=== PATIENT | female | born 1940 | race Caucasian/White ===

== ENCOUNTER 2018-07-19 20:07 | Inpatient (IN) | payer MEDICARE ==
[~2018-07-19 20:07] MED LIST: ISOVUE-370 76%-LOCM 1 ML ONE
[2018-07-19 20:51] LABS: #Basophils 0.1 thou/uL (0.0-0.2); #Lymphocytes 0.7 thou/uL (1.20-3.40); #Monocytes 0.8 thou/uL (0.11-0.59); #Neutrophils 10.6 thou/uL (1.40-6.50); %Basophils 0.7 % (0.0-1.0); %Eosinophils 0.1 % (0.0-10.0); %Lymphocytes 5.6 % (21.0-51.0); %Monocytes 6.6 % (0.0-10.0); %Neutrophils 86.9 % (42.0-75.0); Hemoglobin 12.6 g/dL (12.0-16.0); Mean Corpuscular HGB CONC 32.7 g/dL (32.0-36.0); Mean Platelet Volume 7.3 fL (7.4-10.4); Platelet Count 329 thou/uL (130-400); RBC Distribution Width 13.3 % (11.5-14.5); Red Blood Cell (RBC) Count 4.05 mill/uL (4.20-5.40); White Blood Cell (WBC) Count 12.2 thou/uL (4.8-10.8)
[2018-07-19] MEDS ORDERED: methylPREDNISolone Sod Succ/PF 125 MG/2 ML VIAL ONE (20:53)
[2018-07-19] MEDS ORDERED: Water For Inject, Bacteriostat 30 ML ONE (20:54)
[2018-07-19 21:13] LABS: ALT (SGPT) 8 U/L (8-55); AST (SGOT) 11 U/L (5-34); Albumin 3.7 g/dL (3.4-4.8); Alkaline Phosphatase 81 U/L (40-150); Anion Gap 18 mmol/L (10-20); BUN (Urea Nitrogen) 14 mg/dL (9.8-20.1); Bilirubin, Total 0.6 mg/dL (0.2-1.2); Calc. Creatinine Clearance 0 mL/min (70-130); Calcium 9.7 mg/dL (7.8-10.44); Carbon Dioxide 19 mmol/L (23-31); Chloride 103 mmol/L (98-107); Estimated GFR-MDRD 84; Globulin 3.3 g/dL (2.4-3.5); Glucose 150 mg/dL (83-110); Lipase 5 U/L (8-78); Potassium 3.4 mmol/L (3.5-5.1); Sodium 137 mmol/L (136-145)
[2018-07-19 21:17] LABS: CKMB 1.9 ng/mL (0-6.6); Troponin I Less than 0.010 ng/mL (< 0.028)
--- NOTE | 2018-07-19 21:26 | RAD ---
CHEST ONE VIEW: 07/19/18 HISTORY: Dyspnea and shortness of breath. COMPARISON: None. FINDINGS: There is atherosclerosis of the aorta. Normal cardiac silhouette. The pulmonary vessels and hilum are normal. Costophrenic angles are slightly blunted, right greater than left. Chronic changes due to at electasis is suspected. There are patchy interstitial opacities in the lung bases also felt to be due to atelectasis. The lungs are hyperinflated. There is no pneumothorax or osseous abnormalities. Note , there is a skin fold projecting over the right hemithorax. IMPRESSION: 1. Hyperinflation. Chronic changes. 2. Atherosclerosis. POS: [facility]
[2018-07-19 21:32] LABS: Free T4 (Free Thyroxine) 1.31 ng/dL (0.70-1.48); Thyroid Stimulating Hormone 0.1688 uIU/mL (0.35-4.94)
--- NOTE | 2018-07-19 22:42 | CT ---
CT ANGIOGRAM OF THE CHEST 07/19/18 HISTORY: Evaluate for pulmonary artery embolism. Cough and shortness of breath. COMPARISON: None. TECHNIQUE: CT angiogram of the chest is performed in the axial plane. Three dimension reformatted images are sub mitted for interpretation. FINDINGS: No mediastinal mass, lymphadenopathy, or hematoma. There is a small amount of pericardial fluid. Hear t size is within normal limits. There are coronary artery calcifications. There is atherosclerosis an d elongation of the thoracic aorta. No evidence of aneurysm or dissection. There is a hypodensity pos terior to the bifurcation of the central pulmonary arterial system. This hypodensity has an attenuati on coefficients of negative 10 (-10) Hounsfield units and may present pericardial fluid. Visualized upper solid organs are unremarkable. There is prominence of the common bile duct. Emphysematous changes in the lung parenchyma. There is consolidation in the right lower lobe, right i nfrahilar region and in the middle lobe. There is evidence of right hilar lymphadenopathy. A conglome ration of enlarged right hilar lymph node measures 2.3 x 1.2 cm. There appears to be soft tissue material in the right main stem bronchus extending into the proximal bronchi involving the right lower lobe and middle lobe. Adequate contrast opacification in the pulmonary arterial system to the level of the segmental arteri es. No filling defect to suggest thromboembolism. IMPRESSION: 1. Right hilar consolidation/soft tissue attenuation within the right main stem bronchus and bro nchi supplying the middle lobe and lower lobe. Bronchoscopy is recommended to exclude a malignant pro cess. there is consolidation in the right lower lobe and middle lobe which may represent pneumonia. 2. Enlarged right hilar lymph nodes. 3. Prominent common bile duct, incompletely evaluated. 4. Extensive emphysematous changes. POS: [facility]
[2018-07-19 23:08] LABS: Bilirubin Negative (Negative); Blood, Urine Negative (Negative); Clarity CLEAR (Clear); Glucose, Urine (Dipstick) Negative (Negative); Leukocyte Negative (Negative); Nitrite Negative (Negative); Protein, Urine (Dipstick) Negative (Neg-Trace)
[2018-07-19 23:11] LABS: Specific Gravity, Urine 1.058 (1.002-1.036)
--- NOTE | 2018-07-20 00:33 | PDOC.FPRHP ---
- History of Present Illness Chief Complaint: SOB History of Present Illness: This is a 77 yo F w/ PMH significant for COPD presenting with hx of dyspnea for worsening over the last day. The patient endorses SOB that suddenly became worse around 1900. Patient states that she has also had a cough that has progressively gotten worse over the last 2 weeks and has become productive. Patient is unable to characterize the color, but states it is a small amount. Patient also endorses nausea today but no vomiting. Patient has hx of persistent UTI for which she is taking doxy and macrobid. She is currently seeing a specialist for this issue. Patient states she has hesitancy issues. Patient endorses feeling febrile at home over the last day. Per daughter who was in the room, she states patient looked diaphoretic over the past day as well. Patient notes a 20lb weight loss over the last 2 months. She states hse has had a decreased appetite. Patient has a significant smoking hx. Patient denies chest pain, palpitations, abdominal pain, vomiting, diarrhea. 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 denies: night sweats, fatigue Eyes: denies: eye pain, vision changes ENT: denies: nasal congestion, rhinorrhea Respiratory: reports: cough, shortness of breath. denies: congestion Cardiovascular: denies: chest pain, palpitation, edema Gastrointestinal: reports: nausea. denies: vomiting, diarrhea, constipation, abdominal pain Genitourinary: reports: incontinence. denies: dysuria Skin: denies: rashes, lesions Musculoskeletal: reports: other (generalized pain) - Vital signs BP: 116/57 HR: 112 RR: 22 Tmax: 100.6 Pox: 94% on RA initially 86% on RA with EMS Wt: 49.9kg - Physical Exam Constitutional: NAD, awake, alert and oriented -Constitutional: elderly appearing, cachectic appearing HEENT: normocephalic and atraumatic, PERRLA, EOMI, grossly normal vision, grossly normal hearing, MMM Neck: supple, FROM, trachea midline Chest: no-tender to palpation, no lesions Heart: RRR, normal S1/S2, no murmurs/rubs/gallops, pulses present, no edema Lungs: no respiratory distress -Lungs: RLL crackles, clear in other lung iraheta Abdomen: soft, non-tender, bowel sounds present, no masses/distention Musculoskeletal: normal structure, normal tone, ROM grossly normal Neurological: no focal deficit Skin: no rash/lesions, good turgor, capillary refill <2 seconds Psychiatric: normal mood and affect, good judgment and insight, intact recent and remote memory FMR H&P: Results - Labs Result Diagrams: 07/20/18 03:37 07/20/18 03:37 Lab results: WBC 12.2 thou/uL (4.8-10.8) H 07/19/18 20:43 Hgb 12.6 g/dL (12.0-16.0) 07/19/18 20:43 Hct 38.5 % (36.0-47.0) 07/19/18 20:43 MCV 95.0 fL (78.0-98.0) 07/19/18 20:43 Plt Count 329 thou/uL (130-400) 07/19/18 20:43 Neutrophils % 86.9 % (42.0-75.0) H 07/19/18 20:43 Sodium 137 mmol/L (136-145) 07/19/18 20:43 Potassium 3.4 mmol/L (3.5-5.1) L 07/19/18 20:43 Chloride 103 mmol/L (98-107) 07/19/18 20:43 Carbon Dioxide 19 mmol/L (23-31) L 07/19/18 20:43 BUN 14 mg/dL (9.8-20.1) 07/19/18 20:43 Creatinine 0.68 mg/dL (0.6-1.1) 07/19/18 20:43 Glucose 150 mg/dL (83-110) H 07/19/18 20:43 Calcium 9.7 mg/dL (7.8-10.44) 07/19/18 20:43 Total Bilirubin 0.6 mg/dL (0.2-1.2) 07/19/18 20:43 AST 11 U/L (5-34) 07/19/18 20:43 ALT 8 U/L (8-55) 07/19/18 20:43 Alkaline Phosphatase 81 U/L (40-150) 07/19/18 20:43 CK-MB (CK-2) 1.9 ng/mL (0-6.6) 07/19/18 20:43 B-Natriuretic Peptide 233.7 pg/mL (0-100) H 07/19/18 20:43 Serum Total Protein 7.0 g/dL (6.0-8.3) 07/19/18 20:43 Albumin 3.7 g/dL (3.4-4.8) 07/19/18 20:43 Lipase 5 U/L (8-78) L 07/19/18 20:43 Urine Ketones 40 mg/dL (Negative) H 07/19/18 22:55 Urine Blood Negative (Negative) 07/19/18 22:55 Urine Nitrite Negative (Negative) 07/19/18 22:55 Ur Leukocyte Esterase Negative (Negative) 07/19/18 22:55 - Radiology Interpretation Other Status: report reviewed by me (IMPRESSION: 1. Right hilar consolidation/soft tissue attenuation within the right main stem bronchus and bro nchi supplying the middle lobe and lower lobe. Bronchoscopy is recommended to exclude a malignant pro cess. there is consolidation in the right lower lobe and middle lobe which may represent pneumonia. 2. Enlarged right hilar lymph nodes. 3. Prominent common bile duct, incompletely evaluated. 4. Extensive emphysematous changes.) FMR H&P: A/P - Problem List (1) Sepsis Current Visit: No Status: Acute Code(s): A41.9 - SEPSIS, UNSPECIFIED ORGANISM (2) Hypokalemia Current Visit: No Status: Acute Code(s): E87.6 - HYPOKALEMIA (3) Leukocytosis Current Visit: No Status: Acute Code(s): D72.829 - ELEVATED WHITE BLOOD CELL COUNT, UNSPECIFIED (4) Acute respiratory failure with hypoxia Current Visit: No Status: Acute Code(s): J96.01 - ACUTE RESPIRATORY FAILURE WITH HYPOXIA (5) COPD (chronic obstructive pulmonary disease) Current Visit: No Status: Acute (6) Hypertension Current Visit: No Status: Acute Code(s): I10 - ESSENTIAL (PRIMARY) HYPERTENSION (7) UTI (urinary tract infection) Current Visit: Yes Status: Acute (8) Lung mass Current Visit: Yes Status: Acute Code(s): R91.8 - OTHER NONSPECIFIC ABNORMAL FINDING OF LUNG FIELD - Plan Sepsis 2/2 to CAP vs post obstructive pneumonia - Admit to medical inpatient - Pt febrile, tachycardic and hypoxic on arrival to ED - CTA showing right hilar consolidation/soft tissue attenuation within right main stem bronchus and consolidation in RLL and middle lobe representing possible pneumonia - recommend bronchoscopy - D-dimer elevated; PE ruled out w/ CTA - Pulm consult placed - continue IV levoquin Lung mass, new finding - CTA: right hilar consolidation/soft tissue of right main stem bronchus - recommended bronchoscopy - concern for possible malignant neoplasm - Pulm consulted Acute hypoxic Resp Failure, resolved - 86% per EMS - continue to monitor O2 sat, keep 88-92% - Duoneb PRN COPD Exacerbation - Duoneb tx PRN - CXR showing hyperinflation and chronic changes - continue home meds - PRN supplemental O2 - Will give daily steroids Subclinical hyperthyroidism - Asymptomatic, continue to monitor. Leukocytosis - 2/2 to post obstructive pneumonia Hypokalemia - K 3.4 - Will trend with AM BMP and replace as needed Recurrent UTIs - Continue home antibiotic regimen. - Pt follows up with urologist outpatient Hx of Hip/Pelvic Fracture - Aware, fall precautions Hx of Hypertension - Aware, continue home meds Hx of Restless leg syndrome - continue home medications. DISPO: admit to tele for sepsis CODE: DNR FMR H&P: Upper Level - Pertinent history Caitlyn Kerr is a 77 year old female with a 40 pack year smoking history and history of COPD who presents to the ED with a one day history of shortness of breath that acutely worsened yesterday @ 1900 without provocation. Pt also noted increased productive cough yesterday. She was noted to have an oxygen saturation of 86% at some point on room air. Dyspnea improved with duonebs treatments given by EMS. Of note, pt reports ~ 20 lb weight loss over the past several months. - Pertinent findings Vitals: Tmax: 100.6 RR: 19 P: 112 SpO2: 99% on RA Physical Exam: General: alert and oriented in no distress; cachectic appearing. Heart: regular rate and rhythm, no murmurs, rubs, or gallops Lungs: RLL crackles; no wheezes or rhonchi; no use of accessory muscles. Extremities: no peripheral edema Labs and Imaging reviewed and as stated above. - Plan Date/Time: 07/20/1831 I, Valarie Mejia, have evaluated this patient and agree with findings/plan as outlined by hospital internship resident. Pertinent changes/additions are listed here. Sepsis secondary to postobstructive pneumonia - with fever and tachycardia, and presence of infectious process on CTA. - Pt has received 20 ml/kg bolus. - continue Levofloxacin; Consider adding Zosyn given presence of structural abnormality and increased risk of pseudomonas; will hold off for now. - Procalcitonin pending COPD exacerbation - with dyspnea, and increase in sputum production - Continue steroids, duonebs - prn supplemental O2 Lung Mass, new diagnosis - pt with longstanding smoking history - concern raised for possible neoplasm. - Pulm consult placed in ED, recommendations appreciated Subclinical hyperthyroidism - asymptomatic, continue to monitor. Hypokalemia - will replace. Restless leg syndrome - continue home medications. Recurrent UTIs - continue home antibiotic regimen. - pt follows up with urologist outpatient. Acute hypoxic respiratory failure, resolved Attending Addendum - Attending Addendum Date/Time: 07/20/18 [id number] I personally evaluated the patient and discussed the management with Dr. Lr/ Jackie. I agree with the History, Examination, Assessment and Plan documented above with any addition or exceptions noted below.
[2018-07-20] MEDS ORDERED: Ondansetron PF 4 MG/2 ML Vial IVP PRN (00:48)
[2018-07-20] MEDS ORDERED: Acetaminophen 325 MG TAB PO PRN (00:48)
[2018-07-20 02:04] VITALS: BMI 17.0
[2018-07-20] MEDS ORDERED: clonazePAM 0.5 MG TAB PO SCH (02:30)
[2018-07-20 03:09] LABS: Lactic Acid 1.5 mmol/L (0.5-2.2)
[2018-07-20 03:24] LABS: Legionella Urinary Ag Negative (Negative); Strep pneumo Urine Ag NEGATIVE (NEGATIVE)
[2018-07-20 05:13] LABS: #Lymphocytes 0.3 thou/uL (1.20-3.40); #Monocytes 0.1 thou/uL (0.11-0.59); #Neutrophils 10.3 thou/uL (1.40-6.50); %Lymphocytes 2.5 % (21.0-51.0); %Monocytes 1.3 % (0.0-10.0); %Neutrophils 96.1 % (42.0-75.0); Hemoglobin 11.1 g/dL (12.0-16.0); Mean Corpuscular HGB CONC 33.2 g/dL (32.0-36.0); Mean Corpuscular Hemoglobin 31.1 pg (27.0-31.0); Mean Corpuscular Volume 93.6 fL (78.0-98.0); Mean Platelet Volume 7.9 fL (7.4-10.4); Platelet Count 301 thou/uL (130-400); RBC Distribution Width 13.3 % (11.5-14.5); Red Blood Cell (RBC) Count 3.57 mill/uL (4.20-5.40); White Blood Cell (WBC) Count 10.8 thou/uL (4.8-10.8)
[2018-07-20 05:33] LABS: Anion Gap 14 mmol/L (10-20); BUN (Urea Nitrogen) 9 mg/dL (9.8-20.1); Calc. Creatinine Clearance 59 mL/min (70-130); Calcium 9.1 mg/dL (7.8-10.44); Carbon Dioxide 20 mmol/L (23-31); Chloride 106 mmol/L (98-107); Estimated GFR-MDRD Greater than 90; Glucose 176 mg/dL (83-110); Potassium 3.5 mmol/L (3.5-5.1); Sodium 136 mmol/L (136-145)
[2018-07-20] MEDS ORDERED: Prevnar 13-Val Conj/PF 0.5 ML SYRINGE IM ONE (09:00)
[2018-07-20] MEDS ORDERED: methylPREDNISolone Sod Succ/PF 125 MG/2 ML VIAL IVP SCH (09:00)
[2018-07-20] MEDS: Enoxaparin Sodium 40 MG/0.4 ML SYRINGE SC SCH (09:46)
[2018-07-20] MEDS: predniSONE 20 MG TAB PO SCH (09:46)
[2018-07-20] MEDS: Nicotine 21 MG PATCH TD SCH (09:48)
[2018-07-20] MEDS ORDERED: Labetalol HCl 100 MG/20 ML VIAL SLOW IVP PRN (11:45)
[2018-07-20] MEDS ORDERED: guaiFENesin ER 600 MG TAB PO SCH (15:45)
[2018-07-20] MEDS: clonazePAM 0.5 MG TAB PO PRN (20:18)
[2018-07-20] MEDS ORDERED: Nebivolol HCl 5 MG TAB PO SCH (21:45)
[2018-07-20] MEDS ORDERED: Mometasone/Formoterol 120 PUFF INHALER INH SCH (21:45)
[2018-07-20] MEDS: Doxycycline 100 MG CAP PO SCH (21:48)
[2018-07-21] MEDS ORDERED: hydrOXYzine 10 MG TAB PO SCH (01:10)
[2018-07-21] MEDS: Thyroid 30 MG TAB PO SCH (05:47)
--- NOTE | 2018-07-21 06:27 | PDOC.FM ---
- Subjective Subjective: Able to eat, but dec. appetite. No respiratory complaints. SOB & chest tightness has improved; duonebs have helped. - Objective MAR Reviewed: Yes Vital Signs & Weight: Vital Signs (12 hours) Temp Pulse Resp BP Pulse Ox 07/21/18 05:00 97.9 F 76 18 172/85 H 92 L 07/21/18 00:00 97.3 F L 76 18 186/99 H 92 L 07/20/18 21:55 81 18 94 L 07/20/18 21:45 175/88 H 07/20/18 20:00 98.0 F 83 20 190/110 H 92 L Weight Weight 44.991 kg I&O: 07/19/18 07/20/18 07/21/18 06:59 06:59 06:59 Intake Total 600 Balance 600 Result Diagrams: 07/21/18 07:05 07/21/18 07:05 Phys Exam - Physical Examination Constitutional: NAD HEENT: moist MMs, sclera anicteric Respiratory: no wheezing, no rales, clear to auscultation bilateral Cardiovascular: RRR, no significant murmur Gastrointestinal: soft, non-tender, no distention Neurological: non-focal, moves all 4 limbs Psychiatric: normal affect, A&O x 3 Dx/Plan (1) COPD exacerbation Code(s): J44.1 - CHRONIC OBSTRUCTIVE PULMONARY DISEASE W (ACUTE) EXACERBATION Status: Acute (2) Hypokalemia Code(s): E87.6 - HYPOKALEMIA Status: Acute (3) Mass of lung parenchyma Code(s): R91.8 - OTHER NONSPECIFIC ABNORMAL FINDING OF LUNG FIELD Status: Acute (4) Subclinical hyperthyroidism Code(s): E05.90 - THYROTOXICOSIS, UNSP WITHOUT THYROTOXIC CRISIS OR STORM Status: Acute (5) Restless legs syndrome Status: Acute (6) Recurrent UTI Code(s): N39.0 - URINARY TRACT INFECTION, SITE NOT SPECIFIED Status: Acute (7) Sepsis Code(s): A41.9 - SEPSIS, UNSPECIFIED ORGANISM Status: Resolved (8) Acute respiratory failure with hypoxia Code(s): J96.01 - ACUTE RESPIRATORY FAILURE WITH HYPOXIA Status: Resolved - Plan Plan: 77 yo F with longstanding COPD & smoking hx with COPD exacerbation, sepsis secondary to PNA. Sepsis 2/2 RLL PNA -Clinically stable, vital signs stable, afebrile -Will transition from IV to PO levaquin -Pending blood cultures Acute on chronic COPD exacerbation in setting of PNA -Continue prednisone, duonebs PRN, levaquin -supplemental O2 PRN for goal O2 of 88-92% New pulmonary R hilar consolidation, concern for neoplasm -Pulm consult placed in ED, will touch base today, recs appreciated Hypokalemia -3.4 -> 3.1, will replace and recheck in AM HTN -uncontrolled on home bystolic, will add on amlodipine -Continue to monitor Hypercalcemia -10.9, asx, continue to monitor -Encouraged po hydration intake Subclinical hyperthyroidism -stable, asx, continue home dose of armour thyroid & monitoring RLS -continue home meds Recurrent UTIs -continue home doxy -follows with urologist Tobacco abuse -nicotine patch Acute hypoxic respiratory failure -92% on RA, appropriate given hx of COPD DVT ppx: Lovenox Discussed with Dr. Man
[2018-07-21] MEDS: Mometasone/Formoterol 120 PUFF INHALER INH SCH ×2 (06:37→19:08)
[2018-07-21 07:15] LABS: #Monocytes 0.7 thou/uL (0.11-0.59); %Basophils 0.1 % (0.0-1.0); %Eosinophils 0.1 % (0.0-10.0); %Lymphocytes 8.2 % (21.0-51.0); %Monocytes 5.9 % (0.0-10.0); %Neutrophils 85.7 % (42.0-75.0); Hemoglobin 13.3 g/dL (12.0-16.0); Mean Corpuscular HGB CONC 31.7 g/dL (32.0-36.0); Mean Corpuscular Hemoglobin 29.9 pg (27.0-31.0); Mean Corpuscular Volume 94.3 fL (78.0-98.0); Mean Platelet Volume 7.3 fL (7.4-10.4); Platelet Count 425 thou/uL (130-400); RBC Distribution Width 13.2 % (11.5-14.5); Red Blood Cell (RBC) Count 4.45 mill/uL (4.20-5.40); White Blood Cell (WBC) Count 11.7 thou/uL (4.8-10.8)
[2018-07-21 07:48] LABS: ALT (SGPT) 14 U/L (8-55); AST (SGOT) 22 U/L (5-34); Alkaline Phosphatase 86 U/L (40-150); Anion Gap 13 mmol/L (10-20); BUN (Urea Nitrogen) 9 mg/dL (9.8-20.1); Bilirubin, Total 0.4 mg/dL (0.2-1.2); Calc. Creatinine Clearance 52 mL/min (70-130); Calcium 10.5 mg/dL (7.8-10.44); Carbon Dioxide 27 mmol/L (23-31); Chloride 105 mmol/L (98-107); Estimated GFR-MDRD 86; Globulin 3.7 g/dL (2.4-3.5); Glucose 103 mg/dL (83-110); Potassium 3.1 mmol/L (3.5-5.1); Protein, Total 7.7 g/dL (6.0-8.3); Sodium 142 mmol/L (136-145)
[2018-07-21] MEDS: Doxycycline 100 MG CAP PO SCH ×2 (08:48→22:03)
[2018-07-21] MEDS: Enoxaparin Sodium 40 MG/0.4 ML SYRINGE SC SCH (08:48)
[2018-07-21] MEDS: guaiFENesin ER 600 MG TAB PO SCH ×2 (08:49→22:03)
[2018-07-21] MEDS: predniSONE 20 MG TAB PO SCH (08:49)
[2018-07-21] MEDS: Nicotine 21 MG PATCH TD SCH (08:51)
[2018-07-21] MEDS ORDERED: Potassium Chloride 20 MEQ TAB PO SCH (09:00)
--- NOTE | 2018-07-21 12:23 | PRG ---
DATE OF SERVICE: 07/21/2018 Ms. Kerr is a 77-year-old white female, heavy smoker, who was admitted with pneumonia type symptoms along with exacerbation of COPD. She has been found to have a lung mass and we are awaiting input f rom the Pulmonary Service. Clinically, this morning she is stable, in no acute distress. LABORATORY DATA: Her white count is 11.7, hemoglobin is 13.3, hematocrit is 42. Chemistries; her so dium was 142, potassium is slightly low at 3.1 and we are correcting this, chloride 105, bicarbonate 27, BUN is 9, creatinine 0.67.
[2018-07-21] MEDS ORDERED: Amlodipine 5 MG TAB PO SCH (12:30)
[2018-07-21] MEDS: Ondansetron ODT 4 MG TAB PO PRN (12:47)
[2018-07-21] MEDS: Nebivolol HCl 5 MG TAB PO SCH (22:03)
[2018-07-21] MEDS: clonazePAM 0.5 MG TAB PO PRN (22:10)
--- NOTE | 2018-07-21 22:13 | CON ---
DATE OF CONSULTATION: 07/21/2018 70 minutes time, of that time, greater than 50% was spent with the patient and/or the patient's unit in the hospital. REASON FOR CONSULTATION: Potential endobronchial lung mass. HISTORY OF PRESENT ILLNESS: Ms. Kerr is a 77-year-old female who was just relocated to this area f [facility]. She developed symptoms of pneumonia on Saturday and was subsequently admitted to the [facility]. She tells me she has lost approximately 25 pounds of weight in the last 2 months. She has had some night sweats. She has had no hemoptysis. She has a 1 pack per day history of smoking for 3 0 years, but quit about 8 years ago. She has no previous history of cancer. She is currently being treated with antibiotics for the pneumonia. PAST MEDICAL HISTORY: COPD on inhalers at home, hypertension, restless legs syndrome. PAST SURGICAL HISTORY: Hip fixation 8 years ago, pelvic fixation 4 years ago. FAMILY MEDICAL HISTORY: Remarkable for hypertension. SOCIAL HISTORY: Smoking as outlined above. Drinks 1 beer per day. Lives with her daughter who is o pening up a cake store in [facility]. REVIEW OF SYSTEMS: Twelve point review of systems otherwise negative except for the weight loss and night sweats. PHYSICAL EXAMINATION: VITAL SIGNS: Temperature 97.8, pulse 78, respirations 19, O2 sat 90% on room air, blood pressure 150 /91. GENERAL: The patient is 5 foot 4 and is 99 pounds. HEENT: Remarkable for some mild bitemporal wasting. NECK: No adenopathy, no JVD, but she has extensive muscle loss. LUNGS: She has some rhonchi in the right lower lobe, best heard anteriorly. Left side is clear. CARDIOVASCULAR: S1, S2 regular. ABDOMEN: Soft, nontender, no hepatosplenomegaly. EXTREMITIES: No clubbing, cyanosis, or edema. LABORATORY DATA: White blood cell count 11.7, hematocrit 42, platelet count 425. D-dimer was 1.63. Chemistry: Sodium 142, potassium 3.1, chloride 105, CO2 27, BUN 9, creatinine 0.6, glucose 103. Ur inalysis shows some ketonuria. CT of the chest was reviewed. She has some right hilar lymphadenopathy. She has some infiltrative c hanges in the right lower lobe distally. She has some thickening of the fissure between the right mi ddle lobe and the right lower lobe in looking at her bronchial anatomy. She has narrowing of the reg ion leading to the right middle lobe and the right lower lobe with possible endobronchial material, a lthough that is difficult to tell. ASSESSMENT: 1. Right lower lobe pneumonia, possibly postobstructive. 2. Potential endobronchial lung lesion. PLAN: Bronchoscopy with biopsy. Plan is to do the procedure on Saturday. I discussed the risk with the patient including bleeding, infection, accidental lung puncture, and possible reaction to sedation. She is agreeable to proceed. In the meantime, continue antibiotics. Doxycycline and L evaquin have a lot of overlap so I would probably choose one or the other, but not both.
[2018-07-22 05:06] LABS: #Lymphocytes 1.3 thou/uL (1.20-3.40); #Monocytes 0.6 thou/uL (0.11-0.59); #Neutrophils 7.1 thou/uL (1.40-6.50); %Basophils 0.4 % (0.0-1.0); %Eosinophils 0.2 % (0.0-10.0); %Lymphocytes 14.4 % (21.0-51.0); Hemoglobin 14.1 g/dL (12.0-16.0); Mean Corpuscular HGB CONC 32.6 g/dL (32.0-36.0); Mean Corpuscular Hemoglobin 30.8 pg (27.0-31.0); Mean Corpuscular Volume 94.5 fL (78.0-98.0); Mean Platelet Volume 7.8 fL (7.4-10.4); Platelet Count 445 thou/uL (130-400); RBC Distribution Width 13.5 % (11.5-14.5); Red Blood Cell (RBC) Count 4.56 mill/uL (4.20-5.40); White Blood Cell (WBC) Count 9.1 thou/uL (4.8-10.8)
[2018-07-22 05:26] LABS: ALT (SGPT) 27 U/L (8-55); AST (SGOT) 32 U/L (5-34); Albumin 3.9 g/dL (3.4-4.8); Alkaline Phosphatase 86 U/L (40-150); Anion Gap 17 mmol/L (10-20); BUN (Urea Nitrogen) 12 mg/dL (9.8-20.1); Bilirubin, Total 0.4 mg/dL (0.2-1.2); Calc. Creatinine Clearance 49 mL/min (70-130); Calcium 10.4 mg/dL (7.8-10.44); Carbon Dioxide 23 mmol/L (23-31); Chloride 104 mmol/L (98-107); Estimated GFR-MDRD 82; Globulin 3.6 g/dL (2.4-3.5); Glucose 85 mg/dL (83-110); Potassium 3.5 mmol/L (3.5-5.1); Protein, Total 7.5 g/dL (6.0-8.3); Sodium 140 mmol/L (136-145)
[2018-07-22] MEDS: Thyroid 30 MG TAB PO SCH (05:41)
--- NOTE | 2018-07-22 07:03 | PDOC.FM ---
- Subjective Subjective: No acute events overnight. Denies SOB, wheezing, chest tightness, productive cough. Denies fevers. Feels better today. - Objective Vital Signs & Weight: Vital Signs (12 hours) Temp Pulse Resp BP Pulse Ox 07/22/18 01:43 95 07/21/18 20:50 97.9 F 81 20 161/97 H 91 L 07/21/18 20:00 91 L 07/21/18 19:08 61 16 95 Weight Admit Weight 44.991 kg Weight 44.991 kg I&O: 07/20/18 07/21/18 07/22/18 06:59 06:59 06:59 Intake Total 600 620 Balance 600 620 Result Diagrams: 07/22/18 03:56 07/22/18 03:56 Phys Exam - Physical Examination Constitutional: NAD HEENT: moist MMs, sclera anicteric Neck: supple, full ROM Respiratory: no wheezing dec breath sounds diffusely, rhonci in RLL Cardiovascular: RRR, no significant murmur Neurological: non-focal, moves all 4 limbs Psychiatric: normal affect, A&O x 3 Dx/Plan (1) COPD exacerbation Code(s): J44.1 - CHRONIC OBSTRUCTIVE PULMONARY DISEASE W (ACUTE) EXACERBATION Status: Acute (2) Mass of lung parenchyma Code(s): R91.8 - OTHER NONSPECIFIC ABNORMAL FINDING OF LUNG FIELD Status: Acute (3) Subclinical hyperthyroidism Code(s): E05.90 - THYROTOXICOSIS, UNSP WITHOUT THYROTOXIC CRISIS OR STORM Status: Acute (4) Restless legs syndrome Status: Acute (5) Recurrent UTI Code(s): N39.0 - URINARY TRACT INFECTION, SITE NOT SPECIFIED Status: Acute (6) Sepsis Code(s): A41.9 - SEPSIS, UNSPECIFIED ORGANISM Status: Resolved (7) Acute respiratory failure with hypoxia Code(s): J96.01 - ACUTE RESPIRATORY FAILURE WITH HYPOXIA Status: Resolved (8) Hypokalemia Code(s): E87.6 - HYPOKALEMIA Status: Resolved - Plan Plan: 77 yo F with longstanding COPD & smoking hx with COPD exacerbation, sepsis secondary to PNA. Sepsis 2/2 RLL PNA -Clinically stable, vital signs stable, afebrile -Non-hypoxic on RA -Will transition to po levaquin today, d/c doxycycline -Pending blood cultures, NG2D Acute on chronic COPD exacerbation in setting of PNA -Continue prednisone, duonebs PRN, levaquin -supplemental O2 PRN for goal O2 of 88-92% -currently non-hypoxic on RA Potential endobronchial lung lesion -Dr. Romero plans for bronchoscopy Saturday (07/23) HTN -fairly controlled with amlodipine 5mg -if today's BPs not around goal given age, will inc amlodipine dose Hypercalcemia, RESOLVED -10.4, continue to monitor with daily CMPs Hypokalemia,RESOLVED Subclinical hyperthyroidism -stable, asx, continue home dose of armour thyroid & monitoring RLS -continue home meds Recurrent UTIs -continue home doxy -follows with urologist Tobacco abuse -nicotine patch Acute hypoxic respiratory failure -92% on RA, appropriate given hx of COPD DVT ppx: Lovenox Dispo: Stable. Bronch tmrw. Can most likely d/c pending Pulm's recs. Discussed with Dr. Man
[2018-07-22] MEDS: Mometasone/Formoterol 120 PUFF INHALER INH SCH ×2 (07:37→18:29)
[2018-07-22] MEDS ORDERED: Clopidogrel Bisulfate 75 MG TAB ONE (07:57)
[2018-07-22] MEDS: predniSONE 20 MG TAB PO SCH (08:47)
[2018-07-22] MEDS: guaiFENesin ER 600 MG TAB PO SCH ×2 (08:48→19:58)
[2018-07-22] MEDS: Amlodipine 5 MG TAB PO SCH (08:48)
[2018-07-22] MEDS: Nicotine 21 MG PATCH TD SCH (08:48)
[2018-07-22] MEDS: Enoxaparin Sodium 40 MG/0.4 ML SYRINGE SC SCH (08:48)
[2018-07-22] MEDS ORDERED: Amlodipine 5 MG TAB PO SCH ×2 (09:00)
--- NOTE | 2018-07-22 09:03 | PRG ---
DATE OF SERVICE: 07/22/2018 The patient is about the same. She had no acute complaints. PHYSICAL EXAMINATION: VITAL SIGNS: Temperature 97.9, pulse 68, respiration 20, O2 sat 90% on 1 liter, blood pressure 129/6 8. HEENT: Unremarkable. NECK: No JVD. LUNGS: Coarse breath sounds in the right, clear on the left. CARDIAC: S1 and S2 regular. ABDOMEN: Soft. EXTREMITIES: No edema. LABORATORY DATA: White blood cell count 9.1, hematocrit 43.1, platelet count 445. Sodium 140, potas sium 3.5, BUN 12, creatinine 0.7, calcium level 10.4. ASSESSMENT: 1. Possible endobronchial lung mass. 2. Postobstructive pneumonia. PLAN: Bronchoscopy with biopsy. See informed consent discussion from yesterday. Procedure is scheduled for 729.
--- NOTE | 2018-07-22 12:22 | ADD-PRG ---
DATE OF SERVICE: 07/22/2018 ADDENDUM Please add this as an addendum to the note of Sheron Byrne MD. Ms. Kerr has been seen by Dr. Romero. Dr. Romero will perform bronchoscopy tomorrow with further treatment to follow on this procedure. This morning, Ms. Kerr is sitting quietly in bed in no dis tress. She has no chest pain, no shortness of breath and the greatly diminished cough.
[2018-07-22] MEDS: Ondansetron ODT 4 MG TAB PO PRN (14:10)
[2018-07-22] MEDS: traMADol HCl 50 MG TAB PO PRN (17:08)
[2018-07-22] MEDS: Nebivolol HCl 5 MG TAB PO SCH (19:57)
[2018-07-22] MEDS: clonazePAM 0.5 MG TAB PO PRN (21:48)
[2018-07-23] MEDS: Thyroid 30 MG TAB PO SCH (05:01)
--- NOTE | 2018-07-23 05:59 | PDOC.FM ---
- Subjective Subjective: NAEO. Pt. reports feeling well, no complaints. Denies SOB, wheezing, fevers. - Objective MAR Reviewed: Yes Vital Signs & Weight: Vital Signs (12 hours) Temp Pulse Resp BP Pulse Ox 07/23/18 04:00 98.0 F 63 20 125/80 93 L 07/22/18 20:00 92 L 07/22/18 19:18 98.4 F 86 20 149/95 H 92 L 07/22/18 18:29 61 16 90 L Weight Admit Weight 44.991 kg Weight 44.991 kg I&O: 07/21/18 07/22/18 07/23/18 06:59 06:59 06:59 Intake Total 600 620 Balance 600 620 Result Diagrams: 07/22/18 03:56 07/22/18 03:56 Phys Exam - Physical Examination Constitutional: NAD HEENT: PERRLA, moist MMs, sclera anicteric Respiratory: no wheezing, no rales, clear to auscultation bilateral dec breath sounds in RLL Musculoskeletal: no edema Neurological: non-focal, moves all 4 limbs Psychiatric: normal affect, A&O x 3 Dx/Plan (1) COPD exacerbation Code(s): J44.1 - CHRONIC OBSTRUCTIVE PULMONARY DISEASE W (ACUTE) EXACERBATION Status: Acute (2) Mass of lung parenchyma Code(s): R91.8 - OTHER NONSPECIFIC ABNORMAL FINDING OF LUNG FIELD Status: Acute (3) Subclinical hyperthyroidism Code(s): E05.90 - THYROTOXICOSIS, UNSP WITHOUT THYROTOXIC CRISIS OR STORM Status: Acute (4) Restless legs syndrome Status: Acute (5) Recurrent UTI Code(s): N39.0 - URINARY TRACT INFECTION, SITE NOT SPECIFIED Status: Acute (6) Sepsis Code(s): A41.9 - SEPSIS, UNSPECIFIED ORGANISM Status: Resolved (7) Acute respiratory failure with hypoxia Code(s): J96.01 - ACUTE RESPIRATORY FAILURE WITH HYPOXIA Status: Resolved (8) Hypokalemia Code(s): E87.6 - HYPOKALEMIA Status: Resolved - Plan Plan: 77 yo F with longstanding COPD & smoking hx with COPD exacerbation, sepsis secondary to PNA. Sepsis 2/2 RLL PNA -Sepsis resolved, RLL present -Respiratory standpoint-clinically stable -Continue po levaquin -Pending finalized blood cultures, NG2D Acute on chronic COPD exacerbation in setting of PNA -Continue prednisone, duonebs PRN, levaquin -supplemental O2 PRN for goal O2 of 88-92% -currently non-hypoxic on RA Potential endobronchial lung lesion -s/p bronchoscopy, pending path results HTN -stable, continue amlodipine Hypercalcemia, RESOLVED -10.4, continue to monitor with daily CMPs Hypokalemia,RESOLVED Subclinical hyperthyroidism -stable, asx, continue home dose of armour thyroid & monitoring RLS -continue home meds Recurrent UTIs -covered with levaquin -follows with urologist Tobacco abuse -nicotine patch Acute hypoxic respiratory failure -92% on RA, appropriate given hx of COPD DVT ppx: Lovenox Dispo: Stable. Bronch today at 0730. Medically stable from primary team point of view. D/c pending pulm's recs s/p bronch. Discussed with Dr. Man
[2018-07-23] MEDS ORDERED: Sodium Chloride 0.9% 1,000 ML IV SCH (06:00)
[2018-07-23] MEDS: Mometasone/Formoterol 120 PUFF INHALER INH SCH (07:03)
[2018-07-23] MEDS ORDERED: Lidocaine 2% PF 5 ML VIAL ONE (07:06)
[2018-07-23] MEDS ORDERED: Fentanyl 100 MCG/2 ML VIAL ONE (07:36)
[2018-07-23] MEDS ORDERED: Promethazine HCl 25 MG/ML VIAL IM PRN (08:23)
[2018-07-23] MEDS ORDERED: Ondansetron HCl/PF 4 MG/2 ML Vial IVP PRN (08:23)
[2018-07-23] MEDS ORDERED: Promethazine HCl 25 MG/ML VIAL SLOW IVP PRN (08:23)
[2018-07-23] MEDS: Amlodipine 5 MG TAB PO SCH (09:38)
[2018-07-23] MEDS: predniSONE 20 MG TAB PO SCH (09:39)
[2018-07-23] MEDS: Nicotine 21 MG PATCH TD SCH (09:39)
[2018-07-23] MEDS: guaiFENesin ER 600 MG TAB PO SCH (09:39)
[2018-07-23] MEDS: Enoxaparin Sodium 40 MG/0.4 ML SYRINGE SC SCH (09:39)
[2018-07-23 11:11] VITALS: BP 102/68; TEMP 97.9
[2018-07-23] MEDS ORDERED: Succinylcholine Chloride 20 MG/ML 10 ml SYRINGE FS ONE (11:11)
[2018-07-23] MEDS ORDERED: PROPOFOL 200 MG/20 ML VIAL ONE (11:11)
[2018-07-23] MEDS ORDERED: Ondansetron PF 4 MG/2 ML Vial ONE (11:11)
[2018-07-23] MEDS ORDERED: Dexamethasone 20 MG/5 ML VIAL ONE (11:11)
[2018-07-23] MEDS ORDERED: PHENYLEPHRINE-NS 100 MCG/ML 10 ML SYRINGE ONE (11:11)
[2018-07-23] MEDS: traMADol HCl 50 MG TAB PO PRN (11:37)
--- NOTE | 2018-07-23 12:43 | OP ---
DATE OF PROCEDURE: 07/23/2018 PROCEDURES PERFORMED: Fiberoptic bronchoscopy with right middle lobe/right lower lobe endobronchial biopsy, endobronchial brushings, and washings. PREOPERATIVE DIAGNOSIS: Endobronchial lung mass. POSTOPERATIVE DIAGNOSES: 1. Bronchitis, right middle lobe/right lower lobe. 2. Mucus plug, right middle lobe/right lower lobe. ANESTHESIA: General endotracheal. DESCRIPTION OF PROCEDURE: The patient was brought to the endoscopic suite. Prior to the procedure, she had signed her informed consent. She was intubated with the size 8.5 endotracheal tube by the Anesthesia Team. She was placed on mechanical ventilation. An adapter was placed in her endotracheal tube. An Olympus bronchoscope was placed in her endotracheal tube. The distal trachea was in normal appearance. The left mainstem bronchus, left upper lobe, and left lower lobe were in normal appearance. The right upper lobe was in normal appearance. The right middle lobe had some erythema and mucoid secretions present. I did not see any evidence of endobronchial lesions, although there was some circumferential swelling in the bronchus intermedius area. The right lower lobe was carefully inspected and I did not see any evidence of endobronchial lesions. I did some brushings in the right middle lobe. Washings were taken from the right middle lobe. Endobronchial biopsies were done at the bronchus intermedius, where some swelling was present in the mucosa. She tolerated the procedure well and was sent to the recovery area in stable condition. Job ID: [id number]
--- NOTE | 2018-07-24 08:57 | PRG ---
DATE OF SERVICE: 07/23/2018 ADDENDUM: To the note of Dr. Sheron Byrne. Ms. Kerr has just returned from bronchoscopy with Dr. Romero. We had not had a chance yet to speak with Dr. Romero, but according to the patient she tolerated the procedure well. She states that Dr. Romero states that the mass seen during bronchoscopy was likely not malignant and he suggested further workup. We did discuss with the patient the need for colonoscopy and likely a CT of the abdomen and pelvis to continue workup to determine the cause of her weight loss. This can likely be arranged as an outpatient we will discuss with Dr. Romero, she can likely be discharged later today. Job ID: [id number]
--- NOTE | 2018-07-24 12:04 | DIS ---
DATE OF ADMISSION: 07/19/2018 DATE OF DISCHARGE: 07/23/2018 RESIDENT: Sheron Byrne MD, PGY-1. ADMITTING ATTENDING: Joshua Bowser MD DISCHARGE ATTENDING: Helder Man MD CONSULT: Pulmonology, Dr. Romero. PROCEDURES: Bronchoscopy, 07/23/2018: -Bronchial washing cytology: negative for malignant cells -Bronchial brushings: negative for malignant cells -Right middle lobe bx: negative for malignant or inflammatory cells -AFB smear negative, culture pending IMAGIN. CT angiogram of the chest: Right hilar consolidation/soft tissue attenuation within the right mainstem bronchus and bronchi supplying the middle lobe and lower lobe. May represent pneumonia, but need to exclude all malignant process. 2. Enlarged right hilar lymph nodes. 3. Prominent common bile duct, incompletely evaluated. 4. Extensive emphysematous changes. PRIMARY DIAGNOSES: 1. Acute hypoxic respiratory failure secondary to right lower lobe pneumonia, likely postobstructive. 2. Right hilar lung consolidation, benign 3. Acute on chronic obstructive pulmonary disease exacerbation. SECONDARY DIAGNOSES: 1. Chronic obstructive pulmonary disease. 2. Restless legs syndrome. 3. Hypertension. 4. Tobacco abuse. DISCHARGE MEDICATIONS: 1. Amlodipine 5 mg p.o. daily. 2. Mucinex 600 mg p.o. q.12 hours p.r.n. for cough and congestion. 3. Levaquin 750 mg daily for 6 days. 4. Nicotine patch 21 mg transdermal daily. 5. Prednisone 10 mg p.o. 1 tablet. DISCONTINUED MEDICATIONS: Doxycycline. HISTORY OF PRESENT ILLNESS AND HOSPITAL COURSE: Ms. Kerr is a pleasant 77-year-old female with history of COPD, who was admitted for acute hypoxic respiratory failure requiring nasal cannula O2. Chest x-ray showed right lower lobe pneumonia, possibly obstructive. In addition clinical picture was complicated by hx of COPD, thus she was also treated for acute COPD exacerbation likely triggered by underlying pneumonia. Patient did not exhibit any systemic infections-remained afrebrile with normal white count during stay. Chest and thorax CTA also showed a right hilar consolidation. Due to recent 20lb weight loss & 30 pack year history, she was further worked up with bronchoscopy which was negative for malignancy . Patient was treated appropriately for PNA and CPOD and clinically improved. She also experienced high blood pressures, which was controlled with startiner her on amlodipine 5 mg. DISPOSITION: Stable. DISCHARGE INSTRUCTIONS: 1. Location, home. 2. Diet, heart-healthy diet. 3. Activity, ad stormy. 4. Followup, please follow up with PCP, Sheron Byrne, at [facility]; Dr. Romero for further conversation for bronchoscopy results if needed. Job ID: [id number] MTDD
--- NOTE | 2018-07-26 16:14 | EKG ---
Test Reason : SOB Blood Pressure : / mmHG Vent. Rate : 109 BPM Atrial Rate : 109 BPM P-R Int : 154 ms QRS Dur : 086 ms QT Int : 338 ms P-R-T Axes : 050 044 084 degrees QTc Int : 455 ms Sinus tachycardia with Premature supraventricular complexes Left ventricular hypertrophy with repolarization abnormality Abnormal ECG Confirmed by LAST RAMIREZ ([id number]), scientific publications editor OLEG KATZ ([id number]) on 07/26/2018 4:14:39 PM Referred By: Confirmed By:LAST RAMIREZ
[2018-07-26 22:07] LABS: Fungus Stain Final report (.)
== END 2018-07-23 13:58 | disposition home or self-care (01) | DRG 871 ==
LOC: ERS 20:07 → 2SW 23:49 → OBSVTOIN 23:49 → ERS 07-20 00:30 → T4-A 07-20 01:37
PROVIDERS: ADMIT Student in an Organized Health Care Education/Training Program; ATTEND Student in an Organized Health Care Education/Training Program
PROC: 0BD68ZX Extraction of Right Lower Lobe Bronchus, Via Natural or Artificial Opening Endoscopic, Diagnostic (ICD-10-PCS; principal; 2018-07-23)
PROC: 0BDD8ZX Extraction of Right Middle Lung Lobe, Via Natural or Artificial Opening Endoscopic, Diagnostic (ICD-10-PCS; 2018-07-23)
DX: A41.9 Sepsis, unspecified organism (principal); J18.8 Other pneumonia, unspecified organism; J96.01 Acute respiratory failure with hypoxia; J44.1 Chronic obstructive pulmonary disease with (acute) exacerbation; J44.0 Chronic obstructive pulmonary disease with (acute) lower respiratory infection; T17.590A Other foreign object in bronchus causing asphyxiation, initial encounter; N39.0 Urinary tract infection, site not specified; G25.81 Restless legs syndrome; I10 Essential (primary) hypertension; F17.210 Nicotine dependence, cigarettes, uncomplicated; R91.8 Other nonspecific abnormal finding of lung field; E87.6 Hypokalemia; E05.90 Thyrotoxicosis, unspecified without thyrotoxic crisis or storm
CPT/HCPCS: 36415; 36416; 71045; 71275; 76000; 80048; 80053; 81003; 82553; 83605; 83690; 83880; 84145; 84439; 84443; 84484; 85025; 85379; 87040; 87070; 87086; 87102; 87116; 87205; 87206; 87804; 87899; 88104; 88112; 88305; 90471; 90670; 93005; 94799; A4353; G0009; J1100; J1650; J1956; J2001; J2405; J2704; J2930; J3010; J7506; Q0162

== ENCOUNTER 2018-08-05 12:06 | Outpatient (CLI) | payer MEDICARE ==
--- NOTE | 2018-08-05 14:36 | CT ---
CT ABDOMEN AND PELVIS WITH IV CONTRAST: Date: 08/05/18 HISTORY: Abnormal weight loss. COMPARISON: CTA thorax on 07/19/18. FINDINGS: The parenchymal area of consolidation in the right lower lobe and right middle lobe, where imaged on today's examination, demonstrates resolution of the parenchymal densities with linear scarring versus atelectasis at the right lung base. There is a small, approximately 6.0 mm, noncalcified pulmonary n odule at the posterolateral aspect of the right lower lobe. This could also be related to a focal are a of atelectasis, but follow-up is suggested. Left lung base is clear. Vascular calcifications are seen in the abdominal aorta and involving the iliac arteries with associa alexandra scattered atherosclerotic plaque. A few tiny, subcentimeter, too small to characterize, hypodense lesions are seen in each lobe of the liver. The previously seen 6.0 mm nonobstructing superior pole right renal calculus is again present. Subcen timeter hypodense cystic lesions are seen in the left kidney, too small to further characterize. The spleen, pancreas, and bilateral adrenal glands demonstrate a normal CT appearance. The common abena t is at the upper limits of normal in size for the patient's age. There is also prominence of the davis creatic duct, which measures 6.0 mm at the level of the pancreatic head. Exact etiology for prominenc e of the pancreatic duct is uncertain. There are punctate calcifications seen in the head and portion s of the body of the pancreas which may be sequelae of prior pancreatitis. There is a large duodenal diverticulum filled with fluid and gas seen at the region of the second and third portion of the duod enum. Urinary bladder demonstrates a normal CT appearance. There is colonic diverticulosis. Small to moderate amount of retained fecal material is seen througho ut the colon. There does appear to be mild focal bowel wall thickening involving a few loops of proxi mal jejunum of uncertain etiology. Enteritis cannot be entirely excluded. No enlarged lymph nodes are seen by CT size criteria. No free fluid or fluid collection seen in the a bdomen or pelvis. Degenerative changes are present in the spine. Postsurgical changes right hip are noted. Remote fract ures involving the right superior and inferior pubic rami are present. IMPRESSION: 1. Resolution of parenchymal densities at the right lung base on prior CT exam on 07/19/18. 2. Small nodular density seen at the right posterolateral costophrenic angle with a few adjacent ramon ear densities. While this does demonstrate nodularity in this region, this may be attributable to res idual mild pleural and parenchymal scarring. 3. Subcentimeter, too small to characterize, hypodense lesions in the liver. 4. Nonobstructing superior pole right renal calculus. 5. Subcentimeter, too small to characterize, hypodense lesions in the left kidney. 6. The extrahepatic common duct is at the upper limits of normal in size with mild dilatation of the pancreatic duct of uncertain etiology. ERCP may be helpful for further evaluation. 7. Prominent duodenal diverticulum. 8. Colonic diverticulosis with evidence of constipation. 9. Multilevel degenerative changes in the spine. 10. Remote fractures right pelvis. POS: [facility]
[2018-08-05] MEDS ORDERED: Iopamidol 370 76% 100 ML VIAL ONE (16:56)
== END 2018-08-05 12:07 | disposition home or self-care (01) ==
LOC: CT 12:06
PROVIDERS: ATTEND Student in an Organized Health Care Education/Training Program
DX: R63.4 Abnormal weight loss (principal); K59.00 Constipation, unspecified; K57.50 Diverticulosis of both small and large intestine without perforation or abscess without bleeding; N20.0 Calculus of kidney; J98.4 Other disorders of lung; K76.9 Liver disease, unspecified; N28.9 Disorder of kidney and ureter, unspecified; M47.9 Spondylosis, unspecified; S32.9XXA Fracture of unspecified parts of lumbosacral spine and pelvis, initial encounter for closed fracture
CPT/HCPCS: 74177

== ENCOUNTER 2018-09-08 13:01 | Outpatient (CLI) | payer MEDICARE ==
--- NOTE | 2018-09-08 14:27 | RAD ---
TWO VIEW CHEST: INDICATION: Dyspnea. FINDINGS: There is hyperinflation of the lungs which are lucent. The cardiac silhouette is mildly enlarged. T here is vascular calcification and prominence of pulmonary vasculature. Increased AP diameter of the chest is seen. There is osseous demineralization. IMPRESSION: Evidence of chronic obstructive pulmonary disease. POS: [facility]
== END 2018-09-08 13:02 | disposition home or self-care (01) ==
LOC: RAD 13:01
PROVIDERS: ATTEND Internal Medicine Critical Care Medicine
DX: R06.00 Dyspnea, unspecified (principal); J44.9 Chronic obstructive pulmonary disease, unspecified
CPT/HCPCS: 71046

== ENCOUNTER 2018-10-08 08:57 | Day surgery (SDC) | payer MEDICARE ==
[2018-10-07 15:18] VITALS: BMI 16.2
--- NOTE | 2018-10-08 12:01 | OP ---
DATE OF PROCEDURE: 10/08/2018 CLOSED CIRCUIT SCREEN WATCHER SURGEON: None. PROCEDURES: 1. Esophagogastroduodenoscopy with biopsies. 2. Colonoscopy with snare polypectomy. INDICATIONS: 1. Chronic nausea. 2. Unintentional weight loss. 3. Dysphagia. 4. Family history of colon cancer in a first-degree relative (father). The patient's last colonoscopy was 10 years ago. MEDICATIONS: See Anesthesia record. FINDINGS: After discussion of the risks, benefits, and alternatives of the procedure, informed consent was obtained and witnessed. Pre-endoscopic cardiopulmonary examination was satisfactory. Time-out was performed before sedation was achieved. Sedation was achieved with Anesthesia assistance in the endoscopy unit. A Pentax adult upper endoscope was placed into the oropharynx and passed through the cricopharyngeus under direct visualization. The proximal and mid esophageal mucosa appeared normal. In the distal esophagus at the GE junction, there was some mild friability indicating reflux esophagitis. There was no evidence of erosion or ulceration there. There was no evidence of any stricture or mass lesion throughout the esophagus. The endoscope passes easily into the stomach. Forward and retroflexed views of the entire gastric mucosa were obtained. The gastric mucosa appeared normal throughout. The endoscope was passed through the pylorus and into the first and second portions of the duodenum, which also appeared normal. I did obtain biopsies from the duodenum to rule out celiac disease. The upper endoscope was completely withdrawn and the patient was repositioned. Digital rectal exam was performed, which was unremarkable. The Pentax adult colonoscope was inserted into the anus and passed forward to the cecum in the usual fashion. The cecal base was identified by the appendiceal orifice as well as the ileocecal valve. The terminal ileum was not intubated. The colonoscope was then slowly withdrawn in a gradual and circumferential manner with careful examination of the entire colonic mucosa. The quality of the prep was good. In the ascending colon, there was a sessile polyp measuring 4 mm in diameter. This was completely removed with hot snare and retrieved for pathology. The remainder of the colonic mucosa appeared normal. There was heavy diverticulosis and tortuosity in the sigmoid colon and initial advancement of the scope beyond this area was difficult but ultimately successful. Retroflexion in the rectum demonstrated internal hemorrhoids. The colonoscope was then completely withdrawn, and the patient allowed to recover. The patient tolerated the procedure well. There were no immediate postprocedure complications. IMPRESSION: 1. Grade A distal reflux esophagitis. 2. Otherwise, normal esophagogastroduodenoscopy, with duodenal biopsies obtained. 3. A 4-mm ascending colon polyp, completely removed with hot snare and retrieved for pathology. 4. Heavy sigmoid diverticulosis. 5. Internal hemorrhoids. 6. Otherwise, normal colonoscopy to the cecum. RECOMMENDATIONS: 1. Follow up pathology on duodenal biopsies and ascending colon polyp. 2. Continue daily oral proton pump inhibitor. 3. I will have my clinic arrange for the patient to have an MRCP, to follow up her CT finding of pancreatic duct dilation and pancreatic calcifications. 4. Follow up in clinic after MRCP is complete. 5. We will not plan for repeat colonoscopy for surveillance, due to the patient's age and comorbidities. Job ID: [id number]
[2018-10-08] MEDS ORDERED: PROPOFOL 200 MG/20 ML VIAL ONE (13:48)
[2018-10-08] MEDS ORDERED: Glycopyrrolate 0.2 MG/ML 5 ML SYRINGE ONE (13:48)
== END 2018-10-08 11:40 | disposition home or self-care (01) ==
LOC: SDC 08:57
PROVIDERS: ATTEND Internal Medicine
PROC: 0DB98ZX Excision of Duodenum, Via Natural or Artificial Opening Endoscopic, Diagnostic (ICD-10-PCS; principal; 2018-10-08)
PROC: 0DBK8ZX Excision of Ascending Colon, Via Natural or Artificial Opening Endoscopic, Diagnostic (ICD-10-PCS; 2018-10-08)
DX: K63.5 Polyp of colon (principal); K21.0 Gastro-esophageal reflux disease with esophagitis; K57.30 Diverticulosis of large intestine without perforation or abscess without bleeding; K63.89 Other specified diseases of intestine; K64.8 Other hemorrhoids; I10 Essential (primary) hypertension; Q45.3 Other congenital malformations of pancreas and pancreatic duct; Z87.891 Personal history of nicotine dependence; Z90.710 Acquired absence of both cervix and uterus; Z79.2 Long term (current) use of antibiotics; Z79.899 Other long term (current) drug therapy; Z80.0 Family history of malignant neoplasm of digestive organs
CPT/HCPCS: 88305

== ENCOUNTER 2018-10-22 13:27 | Outpatient (CLI) | payer MEDICARE | END 2018-10-22 13:28 | disposition home or self-care (01) | LOC: CP 13:27 | PROVIDERS: ATTEND Internal Medicine Critical Care Medicine | DX: J44.9 Chronic obstructive pulmonary disease, unspecified (principal); R06.09 Other forms of dyspnea | CPT/HCPCS: 94060; 94727; 94729 ==

== ENCOUNTER 2018-11-05 12:58 | Outpatient (CLI) | payer MEDICARE ==
[~2018-11-05 12:58] MED LIST changes: +Gadobenate Dimeglumine 529 MG/1 ML (20ML VIAL) ONE; -ISOVUE-370 76%-LOCM 1 ML ONE
[2018-11-05 13:42] LABS: Estimated GFR-MDRD - POC Greater than 90
--- NOTE | 2018-11-05 15:49 | MRI ---
MRI ABDOMEN WITH AND WITHOUT IV CONTRAST: HISTORY: Pancreatic duct anomaly. CORRELATION: CT abdomen and pelvis of 08/05/2018. FINDINGS: There is a tiny cyst in the dome of the liver and multiple cysts in the kidneys with high T2, low T1 signal, and no postcontrast enhancement. The spleen and adrenal glands are normal. No gallstones ar e seen. No pancreatic mass is noted. The pancreatic duct and the pancreatic head measures 4 mm. Th e common bile duct measures about 8 cm in diameter. No free fluid or lymphadenopathy is seen in the abdomen. No aneurysmal dilatation of the abdominal a deanna is noted. There is levoscoliosis of the lumbar spine with degenerative changes. A duodenal div erticulum is present. IMPRESSION: 1. Liver and renal cysts. 2. 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 POS: C
== END 2018-11-05 12:59 | disposition home or self-care (01) ==
LOC: BICMRI 12:58
PROVIDERS: ATTEND Internal Medicine
DX: Q45.3 Other congenital malformations of pancreas and pancreatic duct (principal); N28.1 Cyst of kidney, acquired; K76.89 Other specified diseases of liver
CPT/HCPCS: 74183; 82565; A9577

== ENCOUNTER 2019-04-14 13:18 | Outpatient (CLI) | payer MEDICARE ==
--- NOTE | 2019-04-14 13:56 | RAD ---
PA AND LATERAL VIEWS CHEST: HISTORY: Dyspnea. FINDINGS: Comparison is made with the exam of 01/30/2019. Changes of COPD are again seen. The heart size is normal. The aorta is tortuous. Chronic parench ymal changes are stable. No lobar consolidation, pneumothoraces, or pleural effusions are seen. Oss eous structures are stable. IMPRESSION: No acute process. POS: OFF
== END 2019-04-14 13:19 | disposition home or self-care (01) ==
LOC: RAD 13:18
PROVIDERS: ATTEND Internal Medicine Critical Care Medicine
DX: R06.00 Dyspnea, unspecified (principal)
CPT/HCPCS: 71046